=== PATIENT | female | born 1995 | race Hispanic/Latino ===

== ENCOUNTER 2017-06-03 09:05 | Emergency (ER) | payer MEDICAID ==
[2017-06-03 09:07] VITALS: BMI 31.9
[2017-06-03 09:27] VITALS: TEMP 98.2
--- NOTE | 2017-06-03 09:34 | ED PDOC ---
Arrival/HPI - General Chief Complaint: Palpitations Time Seen by Provider: 06/03/17 09:23 Historian: Patient - History of Present Illness Narrative History of Present Illness (Text): 06/03/17 09:20 A 22 year old female, whose past medical history includes depression and psych, presents to the emergency department for chest pain, which the patient reports has been chronic for the last 10 years, but has worsened this morning. The patient describes the pain beginning on the left side of her chest and radiates to her back left shoulder blade with associated palpitations. She denies any nausea, abdominal pain, dysuria, or any other complaints at this time. The patient admits that her pain is similar to the pain she has had in the past. PMD: Jamel Chowdhury Time/Duration: Other (10 years ) Symptom Onset: Gradual Symptom Course: Unchanged, Worsening Quality: Pressure Activities at Onset: Light Context: Home Past Medical History - Provider Review Nursing Documentation Reviewed: Yes - Infectious Disease Hx of Infectious Diseases: None - Tetanus Immunization Tetanus Immunization: Unknown - Past Medical History Past Medical History: No Previous - Cardiac Hx Cardiac Disorders: Yes Other/Comment: Pt states PMD Dx her with Sinus Tach - Pulmonary Hx Respiratory Disorders: Yes Hx Asthma: Yes (ALLERGY INDUCED) - Neurological Hx Neurological Disorder: No - HEENT Hx HEENT Disorder: Yes (CHRONIC TONSILITIS) Other/Comment: tonsils removed 2weeks ago - Renal Hx Renal Disorder: No - Endocrine/Metabolic Hx Endocrine Disorders: No - Hematological/Oncological Hx Blood Disorders: No - Integumentary Hx Dermatological Disorder: No - Musculoskeletal/Rheumatological Hx Musculoskeletal Disorders: No - Gastrointestinal Hx Gastrointestinal Disorders: No - Genitourinary/Gynecological Hx Genitourinary Disorders: No Hx Sexually Transmitted Diseases: No - Psychiatric Hx Psychophysiologic Disorder: Yes Hx Anxiety: Yes Hx Depression: Yes Hx Schizophrenia: Yes Hx Substance Use: No - Surgical History Hx Tonsillectomy: Yes - Anesthesia Hx Anesthesia Reactions: No Hx Malignant Hyperthermia: No - Suicidal Assessment Feels Threatened In Home Enviroment: No Family/Social History - Physician Review Nursing Documentation Reviewed: Yes Family/Social History: No Known Family HX Smoking Status: Never Smoked Hx Alcohol Use: No Hx Substance Use: No Hx Substance Use Treatment: No Allergies/Home Meds Allergies/Adverse Reactions: Allergies No Known Allergies Allergy (Verified 06/03/17 09:15) seasonal allergy Home Medications: Home Meds Medication Instructions Recorded Confirmed Alprazolam [Xanax] 1 mg PO DAILY PRN 03/20/15 06/03/17 Asenapine [Saphris] 10 mg PO DAILY 06/05/16 06/03/17 Sertraline [Zoloft] 100 mg PO DAILY 06/05/16 06/03/17 Review of Systems - Physician Review All systems were reviewed & negative as marked: Yes - Review of Systems Cardiovascular: Chest Pain, Palpitations Gastrointestinal: absent: Abdominal Pain, Nausea Genitourinary Female: absent: Dysuria Physical Exam Vital Signs Reviewed: Yes Vital Signs Temp Pulse Resp BP Pulse Ox 06/03/17 12:56 95 H 17 116/68 98 06/03/17 11:07 96 H 17 125/79 95 06/03/17 09:12 98.2 F 130 H 18 116/77 96 06/03/17 09:07 100 H 17 121/55 L 95 Temperature: Afebrile Blood Pressure: Normal Pulse: Tachycardic Respiratory Rate: Normal Appearance: Positive for: Well-Appearing, Non-Toxic, Comfortable Pain Distress: None Mental Status: Positive for: Alert and Oriented X 3 - Systems Exam Head: Present: Atraumatic, Normocephalic Pupils: Present: PERRL Extroacular Muscles: Present: EOMI Conjunctiva: Present: Normal Mouth: Present: Moist Mucous Membranes Neck: Present: Normal Range of Motion Respiratory/Chest: Present: Clear to Auscultation, Good Air Exchange, Tender to Palpation (mild chest tenderness). No: Respiratory Distress, Accessory Muscle Use Cardiovascular: Present: Regular Rate and Rhythm, Normal S1, S2. No: Murmurs Abdomen: Present: Normal Bowel Sounds. No: Tenderness, Distention, Peritoneal Signs Back: Present: Normal Inspection Upper Extremity: Present: Normal Inspection. No: Cyanosis, Edema Lower Extremity: Present: Normal Inspection. No: Edema Neurological: Present: GCS=15, CN II-XII Intact, Speech Normal Skin: Present: Warm, Dry, Normal Color. No: Rashes Psychiatric: Present: Alert, Oriented x 3, Normal Insight, Normal Concentration Medical Decision Making ED Course and Treatment: 06/03/17 09:36 Impression: A 22 year old female with chest pain. Differential Diagnosis included but are not limited to: Anxiety vs. Musculoskeletal vs. less likely Pulmonary Embolism Plan: -- EKG -- Chest X-ray -- Motrin, ativan -- Reassess and disposition Progress Notes: 06/03/17 10:21 The patient's labs were reviewed and her D-dimer levels are elevated. I will be ordering labs and CT scan. 06/03/17 13:00 Chest X-ray Gate Clerk : Jeff Fuentes MD Report Date : 06/03/2017 11:37:47 HISTORY:chest pain COMPARISON:10/02/2016 FINDINGS: LUNGS:No active pulmonary disease. PLEURA:No significant pleural effusion identified. No pneumothorax apparent. CARDIOVASCULAR:Normal. OSSEOUS STRUCTURES:No significant abnormalities. VISUALIZED UPPER ABDOMEN:Normal. OTHER FINDINGS:None. IMPRESSION:No active disease. 06/03/17 13:41 Accession No. : [id number] Patient Name / ID : PANDA COSTELLO / [id number] Exam Date : 06/03/2017 12:08:04 ( Approved ) Study Comment : Sex / Age : F / 22Y Creator : Ashley Harrison MD Report Date : 06/03/2017 13:34:44 My Comment : PROCEDURE: CT Chest with contrast (Pulmonary Angiogram) IMPRESSION: No CTA evidence for acute pulmonary embolism. Clear lungs. 1:41pm - Pateint no longer has symptoms. CT Chest negative for PE. CXR nl. Patient has an appointment already for a stress test and can follow up with her PMD and [employer] Com[employer]eder. - Lab Interpretations Lab Results: 06/03/17 09:18 06/03/17 09:18 Lab Results 06/03/17 09:28: D-Dimer, Quantitative 1285 H 06/03/17 09:18: Sodium 142, Potassium 3.4 L, Chloride 103, Carbon Dioxide 26, Anion Gap 16, BUN 15, Creatinine 0.6 L, Est GFR ( Amer) > 60, Est GFR ( Non-Af Amer) > 60, Random Glucose 113 H, Calcium 9.4 06/03/17 09:18: PT 12.1, INR 1.10 H, APTT 31.0 06/03/17 09:18: WBC 8.0, RBC 4.60, Hgb 12.2, Hct 39.0, MCV 84.8, MCH 26.5, MCHC 31.3, RDW 13.8, Plt Count 363, MPV 10.0, Gran % 65.8, Lymph % (Auto) 24.6, [place] % (Auto) 7.3 H, Eos % (Auto) 1.5, Baso % (Auto) 0.8, Gran # 5.25, Lymph # 2.0, [place] # 0.6, Eos # 0.1, Baso # 0.06 I have reviewed the lab results: Yes - RAD Interpretation Radiology Orders: 06/03/17 09:24 CXR [CHEST TWO VIEWS (PA/LAT)] [RAD] Stat 06/03/17 10:21 ANGIO CHEST PE PROTOCOL [CT] Stat - Medication Orders Current Medication Orders: Discontinued Medications Ibuprofen (Motrin Tab) 600 mg PO STAT STA Stop: 06/03/17 09:24 Last Admin: 06/03/17 09:37 Dose: 600 mg Lorazepam (Ativan) 1 mg PO ONCE ONE PRN Reason: Protocol Stop: 06/03/17 09:24 Last Admin: 06/03/17 09:37 Dose: 1 mg Potassium Chloride (K-Dur 20 Meq Er Tab) 40 meq PO STAT STA Stop: 06/03/17 10:57 Last Admin: 06/03/17 11:37 Dose: 40 meq - Scribe Statement The provider has reviewed the documentation as recorded by the Nikos Hernandez Provider Scribe Attestation: All medical record entries made by the Scribjúnior were at my direction and personally dictated by me. I have reviewed the chart and agree that the record accurately reflects my personal performance of the history, physical exam, medical decision making, and the department course for this patient. I have also personally directed, reviewed, and agree with the discharge instructions and disposition. Disposition/Present on Arrival - Present on Arrival Any Indicators Present on Arrival: No History of DVT/PE: No History of Uncontrolled Diabetes: No Urinary Catheter: No History of Decub. Ulcer: No History Surgical Site Infection Following: None - Disposition Have Diagnosis and Disposition been Completed?: Yes Diagnosis: Chest pain Disposition: HOME/ ROUTINE Disposition Time: 13:42 Patient Plan: Discharge Patient Problems: Current Active Problems Problem Status Onset Chest pain Acute Condition: IMPROVED Discharge Instructions (ExitCare): Chest Pain (ED) Additional Instructions: Ms May, thank you for letting us take care of you today. Your provider was Dr. Painter. You were treated for Chest Pain. The emergency medical care you received today was directed at your acute symptoms. If you were prescribed any medication, please fill it and take as directed. It may take several days for your symptoms to resolve. Return to the Emergency Department if your symptoms worsen, do not improve, or if you have any other problems. Please contact your doctor or call one of the physicians/clinics you have been referred to that are listed on the Patient Visit Information form that is included in your discharge packet. Bring any paperwork you were given at discharge with you along with any medications you are taking to your follow up visit. Our treatment cannot replace ongoing medical care by a primary care provider (PCP) outside of the emergency department. Thank you for allowing the [facility] team to be part of your care today. If you had an X-Ray or CT scan: A Radiologist will review the ED reading if any change in treatment is needed we will contact you. If you had a blood, urine, or wound culture: It will take several days for the results, if any change in treatment is needed we will contact you. If you had an STI test: It will take 48 hours for the results. Please call after 1 week if you have not heard back. Referrals: Genna Chowdhury MD [Primary Care Provider] - Follow up with primary Forms: [employer] ([place]se), WORK NOTE
[2017-06-03 10:37] LABS: BASO # 0.06 K/mm3 (0.0-2.0); BASO % 0.8 % (0.0-3.0); EOS # 0.1 (0.0-0.7); EOS % 1.5 % (1.5-5.0); GRAN # 5.25 (1.4-6.5); GRAN % 65.8 % (50.0-68.0); LYMPH % 24.6 % (22.0-35.0); MEAN CELL VOLUME 84.8 fl (80.0-105.0); MEAN CORPUSCULAR HEMOGLOBIN 26.5 pg (25.0-35.0); MEAN CORPUSCULAR HGB CONC 31.3 g/dl (31.0-37.0); MONO # 0.6 (0.1-0.6); MONO % 7.3 % (1.0-6.0); RED CELL DISTRIBUTION WIDTH 13.8 % (11.5-14.5)
[2017-06-03 10:44] LABS: BLOOD UREA NITROGEN 15 mg/dL (7-21); CALCIUM 9.4 mg/dL (8.4-10.5); CARBON DIOXIDE 26 mmol/L (21-33); CHLORIDE 103 mmol/L (98-107); GFR AFRICAN-AMERICAN > 60; GLUCOSE,RANDOM 113 mg/dL (70-110); POTASSIUM 3.4 mmol/L (3.6-5.0); SODIUM 142 mmol/L (132-148)
[2017-06-03 10:50] LABS: INR 1.1 (0.93-1.08)
[2017-06-03] MEDS ORDERED: Potassium Chloride 20 mEq ER Tab PO STA (10:56)
[2017-06-03] MEDS ORDERED: Iohexol 350 MG/100 ML VIAL ONE (10:59)
[2017-06-03 11:35] VITALS: RESP 17
--- NOTE | 2017-06-03 11:49 | RAD ---
HISTORY: chest pain COMPARISON: 10/02/2016 TECHNIQUE: Chest PA and lateral FINDINGS: LUNGS: No active pulmonary disease. PLEURA: No significant pleural effusion identified. No pneumothorax apparent. CARDIOVASCULAR: Normal. OSSEOUS STRUCTURES: No significant abnormalities. VISUALIZED UPPER ABDOMEN: Normal. OTHER FINDINGS: None. IMPRESSION: No active disease.
[2017-06-03 12:56] VITALS: O2SAT 98
--- NOTE | 2017-06-03 13:36 | CT ---
PROCEDURE: CT Chest with contrast (Pulmonary Angiogram) HISTORY: chest pain and sob r/o PE COMPARISON: Plain radiographs performed earlier the same day. TECHNIQUE: Axial computed tomography images were obtained of the chest in the pulmonary arterial phase of enhancement. Coronal and sagittal reformatted images were created and reviewed. Intravenous contrast dose: 100 mL Omnipaque 350 Radiation dose: Total exam DLP = 150.09 mGy-cm. This CT exam was performed using one or more of the following dose reduction techniques: Automated exposure control, adjustment of the mA and/or kV according to patient size, and/or use of iterative reconstruction technique. FINDINGS: PULMONARY ARTERIES: There are no filling defects in the pulmonary arteries to suggest acute pulmonary embolism. AORTA: No aortic dissection. No thoracic aortic aneurysm. LUNGS: The lungs are well inflated and clear. No nodule, mass or pulmonary consolidation. PLEURAL SPACES: No effusion or pneuomothorax. HEART: The heart is normal in size. No significant pericardial effusion. LYMPH NODES: No pathologic mediastinal or hilar lymphadenopathy. BONES, CHEST WALL: Within normal limits for the patient's age. No fracture or destructive lesion OTHER FINDINGS: Unremarkable. IMPRESSION: No CTA evidence for acute pulmonary embolism. Clear lungs.
[2017-06-03 13:47] VITALS: BP 118/70; PULSE 93
--- NOTE | 2017-06-03 20:20 | CARD ---
APPROVED REPORT EKG Measurement Heart [id number] 122P70 [id number] <Conclusion> Sinus tachycardia Rightward axis Borderline ECG
== END 2017-06-03 13:47 | disposition home or self-care (01) ==
LOC: ED 09:05
DX: R07.9 Chest pain, unspecified (principal)
CPT/HCPCS: 71020; 71275; 80048; 85025; 85378; 85610; 85730; 93005; 99285; Q9967

== ENCOUNTER 2017-07-26 19:59 | Emergency (ER) | payer MEDICAID ==
[2017-07-26 20:08] VITALS: BMI 18.4
[2017-07-26 20:18] VITALS: RESP 18; TEMP 98.6
--- NOTE | 2017-07-26 20:21 | ED PDOC ---
Arrival/HPI - General Chief Complaint: High Blood Pressure Time Seen by Provider: 07/26/17 19:59 Historian: Patient - History of Present Illness Narrative History of Present Illness (Text): 07/26/17 20:15 Brinda May is a 22 year old female, whose past medical history includes hypertension and tachycardia, who presents to the emergency department complaining of hypertension with a blood pressure level around 150 a few hours prior to arriving. Patient denies any fever, chills, chest pain, shortness of breath, nausea, vomiting, diarrhea, urinary symptoms, back pain, neck pain, headache or any other complaints. pt reports neg stress test recently. upon arrival b/p 120/82. asymptomatic, asking for wifi password in nad. pt reports mild "feeling off". pt later reports that she did not check b/p but "felt it was high" 07/26/17 22:05 Time/Duration: 1-3 hours Symptom Course: Resolved Activities at Onset: Light Context: Home Past Medical History - Provider Review Nursing Documentation Reviewed: Yes - Infectious Disease Hx of Infectious Diseases: None - Tetanus Immunization Tetanus Immunization: Unknown - Past Medical History Past Medical History: No Previous - Cardiac Hx Hypertension: Yes - Pulmonary Hx Respiratory Disorders: Yes Hx Asthma: Yes (ALLERGY INDUCED) - Neurological Hx Neurological Disorder: No - HEENT Hx HEENT Disorder: Yes (CHRONIC TONSILITIS) Other/Comment: tonsils removed 2weeks ago - Renal Hx Renal Disorder: No - Endocrine/Metabolic Hx Endocrine Disorders: No - Hematological/Oncological Hx Blood Disorders: No - Integumentary Hx Dermatological Disorder: No - Musculoskeletal/Rheumatological Hx Musculoskeletal Disorders: No - Gastrointestinal Hx Gastrointestinal Disorders: No - Genitourinary/Gynecological Hx Genitourinary Disorders: No Hx Sexually Transmitted Diseases: No - Psychiatric Hx Psychophysiologic Disorder: Yes Hx Anxiety: Yes Hx Depression: Yes Hx Schizophrenia: Yes Hx Substance Use: No - Surgical History Hx Tonsillectomy: Yes Other/Comment: Oral sx. Endoscopy. Gonzalo foot surgery - Anesthesia Hx Anesthesia: Yes Hx Anesthesia Reactions: No Hx Malignant Hyperthermia: No - Suicidal Assessment Feels Threatened In Home Enviroment: No Family/Social History - Physician Review Nursing Documentation Reviewed: Yes Family/Social History: No Known Family HX Smoking Status: Never Smoked Hx Alcohol Use: No Hx Substance Use: No Hx Substance Use Treatment: No Allergies/Home Meds Allergies/Adverse Reactions: Allergies No Known Allergies Allergy (Verified 06/03/17 09:15) seasonal allergy Home Medications: Home Meds Medication Instructions Recorded Confirmed Alprazolam [Xanax] 1 mg PO DAILY PRN 03/20/15 07/26/17 Asenapine [Saphris] 10 mg PO DAILY 06/05/16 07/26/17 Sertraline [Zoloft] 100 mg PO DAILY 06/05/16 07/26/17 Review of Systems - Physician Review All systems were reviewed & negative as marked: Yes - Review of Systems Constitutional: absent: Fevers, Night Sweats Eyes: absent: Vision Changes ENT: absent: Hearing Changes Respiratory: absent: SOB, Cough Cardiovascular: absent: Chest Pain Gastrointestinal: absent: Abdominal Pain Genitourinary Female: absent: Dysuria, Frequency Musculoskeletal: absent: Arthralgias, Back Pain Skin: absent: Rash, Pruritis Neurological: absent: Headache, Dizziness Endocrine: absent: Diaphoresis, Polyuria Hemo/Lymphatic: absent: Adenopathy, Easy Bleeding Psychiatric: absent: Anxiety, Depression Physical Exam Vital Signs Reviewed: Yes Vital Signs Temp Pulse Resp BP Pulse Ox 07/26/17 21:29 89 18 121/80 100 07/26/17 20:11 98.6 F 102 H 18 120/83 98 Temperature: Afebrile Blood Pressure: Normal Pulse: Tachycardic Respiratory Rate: Normal Appearance: Positive for: Well-Appearing, Non-Toxic, Comfortable Pain Distress: None Mental Status: Positive for: Alert and Oriented X 3 - Systems Exam Head: Present: Atraumatic, Normocephalic Pupils: Present: PERRL Extroacular Muscles: Present: EOMI Conjunctiva: Present: Normal Mouth: Present: Moist Mucous Membranes Neck: Present: Normal Range of Motion Respiratory/Chest: Present: Clear to Auscultation, Good Air Exchange. No: Respiratory Distress, Accessory Muscle Use Cardiovascular: Present: Regular Rate and Rhythm, Normal S1, S2. No: Murmurs Abdomen: Present: Normal Bowel Sounds. No: Tenderness, Distention, Peritoneal Signs Back: Present: Normal Inspection Upper Extremity: Present: Normal Inspection. No: Cyanosis, Edema Lower Extremity: Present: Normal Inspection. No: Edema Neurological: Present: GCS=15, CN II-XII Intact, Speech Normal Skin: Present: Warm, Dry, Normal Color. No: Rashes Psychiatric: Present: Alert, Oriented x 3, Normal Insight, Normal Concentration Medical Decision Making ED Course and Treatment: 07/26/17 20:22 Impression: 22 year old female complaining of hypertension a few hours prior to arrival Differential Diagnosis included but are not limited to: dizziness- r/o metabolic , anemia. Plan: -- Urinalysis -- Labs -- Reassess and disposition Prior Visits: Notes and results from previous visits were reviewed. Patient was last seen in the emergency department on 06/04/17 for chest pain radiating to her left shoulder blade with associated nausea, weakness, and headache. Patient discharged home. Progress Notes: 07/26/17 20:27 ekg nsr 91 incomplete rbbb 07/26/17 21:19 pt reassessed labs unremarkable. ekg unremarkable. b/p normalzied. advise outpt fu and return precautions - Lab Interpretations Lab Results: 07/26/17 20:55 07/26/17 20:55 Lab Results 07/26/17 20:55: Urine Color Yellow, Urine Appearance Sl cloudy, Urine pH 7.5, Ur Specific [place] 1.020, Urine Protein Trace H, Urine Glucose (UA) Negative, Urine Ketones 15 H, Urine Blood Moderate H, Urine Nitrate Negative, Urine Bilirubin Negative, Urine Urobilinogen 0.2, Ur Leukocyte Esterase Negative, Urine RBC 5 - 10, Urine WBC 2 - 5, Ur Epithelial Cells 3 - 4, Urine Bacteria Mod , Urine HCG, Qual Negative 07/26/17 20:55: Sodium 141, Potassium 3.7, Chloride 103, Carbon Dioxide 28, Anion Gap 14, BUN 11, Creatinine 0.8, Est GFR ( Amer) > 60, Est GFR (Non- Af Amer) > 60, Random Glucose 98, Calcium 9.5, Total Bilirubin 0.4, AST 44 H D, ALT 41, Alkaline Phosphatase 48, Total Protein 8.2, Albumin 4.6, Globulin 3.6, Albumin/Globulin Ratio 1.3 07/26/17 20:55: WBC 8.1, RBC 4.33, Hgb 11.3 L, Hct 36.8, MCV 85.0, MCH 26.1, MCHC 30.7 L, RDW 14.0, Plt Count 361, MPV 9.7, Gran % 47.9 L, Lymph % (Auto) 41.7 H, [place] % (Auto) 6.5 H, Eos % (Auto) 2.7, Baso % (Auto) 1.2, Gran # 3.86, Lymph # 3.4, [place] # 0.5, Eos # 0.2, Baso # 0.10 07/26/17 20:46: POC Glucose (mg/dL) 106 - Scribe Statement The provider has reviewed the documentation as recorded by the Scribjúnior Phillip Provider Scribe Attestation: All medical record entries made by the Scribe were at my direction and personally dictated by me. I have reviewed the chart and agree that the record accurately reflects my personal performance of the history, physical exam, medical decision making, and the department course for this patient. I have also personally directed, reviewed, and agree with the discharge instructions and disposition. Disposition/Present on Arrival - Present on Arrival Any Indicators Present on Arrival: No History of DVT/PE: No History of Uncontrolled Diabetes: No Urinary Catheter: No History of Decub. Ulcer: No History Surgical Site Infection Following: None - Disposition Have Diagnosis and Disposition been Completed?: Yes Diagnosis: Dizziness Disposition: HOME/ ROUTINE Disposition Time: 21:20 Condition: STABLE Discharge Instructions (ExitCare): Dizziness (ED) Additional Instructions: return to er with worsening symptoms or concenrs. please follow up in clinic. Referrals: [facility] [Outside] - Follow up with primary [facility] [Outside] - Follow up with primary Forms: [email or web address] (Cuban)
[2017-07-26 21:07] LABS: BASO # 0.1 K/mm3 (0.0-2.0); BASO % 1.2 % (0.0-3.0); EOS # 0.2 (0.0-0.7); EOS % 2.7 % (1.5-5.0); GRAN # 3.86 (1.4-6.5); GRAN % 47.9 % (50.0-68.0); HEMATOCRIT 36.8 % (36.0-48.0); LYMPH # 3.4 (1.2-3.4); LYMPH % 41.7 % (22.0-35.0); MEAN CORPUSCULAR HEMOGLOBIN 26.1 pg (25.0-35.0); MEAN CORPUSCULAR HGB CONC 30.7 g/dl (31.0-37.0); MEAN PLATELET VOLUME 9.7 fl (7.0-11.0); MONO # 0.5 (0.1-0.6); MONO % 6.5 % (1.0-6.0); PH,URINE 7.5 (4.7-8.0); URINE BILIRUBIN NEGATIVE (NEGATIVE); URINE BLOOD MODERATE (NEGATIVE); URINE GLUCOSE (UA) NEGATIVE (NEGATIVE); URINE KETONE 15 mg/dL (NEGATIVE); URINE LEUKOCYTE ESTERASE NEGATIVE Leu/uL (NEGATIVE); URINE PROTEIN TRACE mg/dL (<30 mg/dL); URINE UROBILINOGEN 0.2 E.U./dL (<1 E.U./dL); WHITE BLOOD COUNT 8.1 10^3/ul (4.5-11.0)
[2017-07-26 21:09] LABS: URINE APPEARANCE SL CLOUDY (CLEAR); URINE COLOR YELLOW (YELLOW)
[2017-07-26 21:17] LABS: ALB/GLOB RATIO 1.3 (1.1-1.8); ALKALINE PHOSPHATASE 48 U/L (38-126); ALT/SGPT 41 U/L (7-56); AST/SGOT 44 U/L (14-36); BILIRUBIN,TOTAL 0.4 mg/dL (0.2-1.3); BLOOD UREA NITROGEN 11 mg/dL (7-21); CALCIUM 9.5 mg/dL (8.4-10.5); CARBON DIOXIDE 28 mmol/L (21-33); CHLORIDE 103 mmol/L (98-107); GFR AFRICAN-AMERICAN > 60; GLUCOSE,RANDOM 98 mg/dL (70-110); POTASSIUM 3.7 mmol/L (3.6-5.0); SODIUM 141 mmol/L (132-148); TOTAL PROTEIN 8.2 g/dL (5.8-8.3); URINE BACTERIA MOD (NEG)
[2017-07-26 21:30] VITALS: BP 121/80; PULSE 89; O2SAT 100
--- NOTE | 2017-07-27 17:27 | CARD ---
APPROVED REPORT EKG Measurement Heart [id number] [place] [id number] <Conclusion> Normal sinus rhythm Possible Left atrial enlargement Incomplete right bundle branch block Borderline ECG
== END 2017-07-26 21:30 | disposition home or self-care (01) ==
LOC: ED 19:59
DX: R42 Dizziness and giddiness (principal); I10 Essential (primary) hypertension

== ENCOUNTER 2017-08-10 14:36 | Inpatient (IN) | payer MEDICAID ==
[2017-08-10 14:36] VITALS: BMI 18.4
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
[2017-08-10] MEDS ORDERED: TDAP Vaccine 0.5 mL Syr IM ONE (15:26)
[2017-08-10] MEDS ORDERED: Naproxen 550 mg Tab PO STA (16:30)
--- NOTE | 2017-08-10 16:39 | CT ---
PROCEDURE: CT HEAD WITHOUT CONTRAST. HISTORY: c/o YOO COMPARISON: 06/27/2015 TECHNIQUE: Axial computed tomography images were obtained through the head/brain without intravenous contrast. Radiation dose: Total exam DLP = 903 mGy-cm. This CT exam was performed using one or more of the following dose reduction techniques: Automated exposure control, adjustment of the mA and/or kV according to patient size, and/or use of iterative reconstruction technique. FINDINGS: HEMORRHAGE: No intracranial hemorrhage. BRAIN: No mass effect or edema. No atrophy or chronic microvascular ischemic changes. VENTRICLES: Unremarkable. No hydrocephalus. CALVARIUM: Unremarkable. PARANASAL SINUSES: Unremarkable as visualized. No significant inflammatory changes. MASTOID AIR CELLS: Unremarkable as visualized. No inflammatory changes. OTHER FINDINGS: None. IMPRESSION: No acute findings
[2017-08-10] MEDS ORDERED: Sodium Chloride 0.9% 1,000 ML IV STA (16:46)
--- NOTE | 2017-08-10 17:07 | RAD ---
PROCEDURE: CHEST RADIOGRAPH, 1 VIEW HISTORY: tachycardia COMPARISON: 06/04/2017. FINDINGS: LUNGS: The lungs are well inflated and clear. PLEURA: No pneumothorax or pleural fluid seen. CARDIOVASCULAR: Normal. OSSEOUS STRUCTURES: No significant abnormalities. VISUALIZED UPPER ABDOMEN: Normal. OTHER FINDINGS: None. IMPRESSION: No active pulmonary disease.
[2017-08-10 18:00] LABS: BARBITURATES, UR NEGATIVE (NEGATIVE); BENZODIAZEPINES, UR NEGATIVE (NEGATIVE); OPIATES, UR NEGATIVE (NEGATIVE); PHENCYCLIDINE, UR NEGATIVE (NEGATIVE)
[2017-08-10 18:38] LABS: BASO # 0.05 K/mm3 (0.0-2.0); BASO % 0.4 % (0.0-3.0); EOS # 0.1 (0.0-0.7); EOS % 0.5 % (1.5-5.0); GRAN # 9.01 (1.4-6.5); HEMOGLOBIN 10.8 g/dL (12.0-16.0); LYMPH # 2.1 (1.2-3.4); LYMPH % 17.3 % (22.0-35.0); MEAN CELL VOLUME 83.8 fl (80.0-105.0); MEAN CORPUSCULAR HEMOGLOBIN 26.1 pg (25.0-35.0); MEAN CORPUSCULAR HGB CONC 31.1 g/dl (31.0-37.0); MEAN PLATELET VOLUME 11.3 fl (7.0-11.0); MONO # 0.7 (0.1-0.6); MONO % 5.8 % (1.0-6.0); RBC 4.14 10^6/uL (3.5-6.1); RED CELL DISTRIBUTION WIDTH 14.2 % (11.5-14.5); WHITE BLOOD COUNT 11.9 10^3/ul (4.5-11.0)
[2017-08-10 19:31] LABS: TROPONIN I 0.03 ng/mL
[2017-08-10 19:33] LABS: ALB/GLOB RATIO 1.2 (1.1-1.8); ALBUMIN 3.9 g/dL (3.0-4.8); ALT/SGPT 51 U/L (7-56); AST/SGOT 37 U/L (14-36); BLOOD UREA NITROGEN 9 mg/dL (7-21); CALCIUM 8.2 mg/dL (8.4-10.5); GFR AFRICAN-AMERICAN > 60; GFR NON-AFRICAN AMERICAN > 60
[2017-08-10 20:12] LABS: URINE BILIRUBIN NEGATIVE (NEGATIVE); URINE BLOOD NEGATIVE (NEGATIVE); URINE GLUCOSE (UA) NEGATIVE (NEGATIVE); URINE LEUKOCYTE ESTERASE NEGATIVE Leu/uL (NEGATIVE); URINE NITRATE NEGATIVE (NEGATIVE); URINE PROTEIN 30 mg/dL (<30 mg/dL); URINE UROBILINOGEN 0.2 E.U./dL (<1 E.U./dL)
[2017-08-10 20:15] LABS: ACETAMINOPHEN < 10.0 ug/ml (10.0-20.0); SALICYLATE < 1 mg/dL (2.0-20.0)
[2017-08-10 20:17] LABS: HCG,QUALITATIVE URINE NEGATIVE (NEGATIVE)
[2017-08-10 20:21] LABS: URINE APPEARANCE CLEAR (CLEAR); URINE COLOR YELLOW (YELLOW)
[2017-08-10 20:36] LABS: URINE BACTERIA MOD (NEG); URINE RBC 0 - 2 /hpf (0-2); URINE WBC 0 - 2 /hpf (0-6)
--- NOTE | 2017-08-10 21:44 | CARD ---
APPROVED REPORT EKG Measurement Heart [id number] <Conclusion> Sinus tachycardia Otherwise normal ECG
[2017-08-10] MEDS ORDERED: Iohexol 350 MG/100 ML VIAL ONE (23:13)
--- NOTE | 2017-08-11 00:58 | CT ---
EXAM: CT Angiography Chest With Intravenous Contrast EXAM DATE/TIME: 08/10/2017 9:12 PM CLINICAL HISTORY: 22 years old, female; Pain; Chest pain; Type not specified; Additional info: Elevated d dimer, tachycardia TECHNIQUE: Axial computed tomographic angiography images of the chest with intravenous contrast using pulmonary embolism protocol. All CT scans at this facility use one or more dose reduction techniques, viz.: automated exposure control; ma/kV adjustment per patient size (including targeted exams where dose is matched to indication; i.e. head); or iterative reconstruction technique. MIP reconstructed images were created and reviewed. Coronal and sagittal reformatted images were created and reviewed. CONTRAST: 100 mL of OMNI 350 administered intravenously. COMPARISON: CT - ANGIO CHEST PE PROTOCOL 2017-06-03 12:08 FINDINGS: Heart, aorta and Pulmonary arteries: Heart size is normal. There is no pericardial effusion.There is no aneurysm or dissection. There is perfusion of the 3 arch vessels.There are no pulmonary emboli. Lungs and pleural spaces: Trachea and main bronchi are patent.There is no pneumothorax. There is minimal apical scarring bilaterally. There is no focal consolidation. There is minimal dependent atelectasis. There are no effusions. Mediastinum: The esophagus is unremarkable. There are no pathologically enlarged mediastinal or hilar nodes. Thyroid: Thyroid is unremarkable Bones/joints: There are no acute osseous abnormalities. Soft tissues: unremarkable Upper abdomen: There are no acute abnormalities in the visualized portion of the abdomen. IMPRESSION: No aneurysm, dissection or pulmonary embolus, no focal pneumonia
[2017-08-11] MEDS ORDERED: Alum-Mag Hydrox-Simethicone Susp (30 mL) PO PRN (02:49)
[2017-08-11] MEDS ORDERED: Magnesium Hydroxide Susp 30 ml UD PO PRN (02:49)
--- NOTE | 2017-08-11 03:58 | PCM.BM ---
<Sixto Herrera - Last Filed: 08/11/17 03:55> Treatment Plan Problems - Problems identified on initial assessmt DELUSIONAL Date Initiated: 08/11/17 Time Initiated: 04:00 Assessment reference: NA Status: Active NON ADHERENCE TO MEDICATIONS Date Initiated: 08/11/17 Time Initiated: 04:00 Assessment reference: NA Status: Active POOR COGNITION Date Initiated: 08/11/17 Time Initiated: 04:00 Assessment reference: NA Status: Active Treatment assets and liabiliti Patient Assests: cooperative, educated, self-reliant, ADL independent, good support system, negotiates basic needs Patient Liabilities: financial problems, relationship conflicts, medical problems, other - Milieu Protocol Maintain good personal hygiene: daily Encourage regular showers, every shift Remind patient to perform daily oral care, every shift Assist patient to perform ADL's Maintain personal safety: every shift Educate patient to report safety concerns to staff, every shift Monitor environment for contraband/sharps Medication safety: Monitor for expected outcome, potential side effects: every shift, Assess barriers to learning: every shift, Assess readiness for medication education: every shift Family Contact Family involvement: Family/SO is involved Family contact: Patient agrees to contact Discharge/Continuing Care - Education Needs Education Needs: Patient Medication, Patient Diagnosis/Disease Process, Patient Coping Skills, Patient Anger Management skills, Patient Community resources, Patient Activities of Daily Living, Patient Health Practices/Safety, Patient Personal Hygiene/Grooming - Discharge Discharge Criteria: Tolerates medication w/o severe side effects, Free of Suicidal thoughts, Free of Homicidal thoughts, Free of paranoid thoughts, Normal sleep pattern, Ability to care for self <Ayaka Funes - Last Filed: 08/11/17 11:01> - Diagnosis (1) Schizoaffective disorder Status: Acute Interventions: Psychoeducation/psychotherapy Psychopharmacology/adjustment of medications as needed/ monitoring possible side effects Evaluate pt on daily basis Compliance with medications and follow up appointments Long acting medication if pt is noncompliant with pill form Suicide and homicide risk assessment and prevention, coping strategies, safety plan Relapse prevention Reduction of symptoms Improve functional status Possible assertive community treatment Cognitive behavioral therapy Family involvement Possible social skill training as outpatient 08/11/17 11:02 <Tawny Herman - Last Filed: 08/11/17 16:22> Family Contact Family contact name: Leticia) [phone]) Father Family contacted how many times per week?: 2 - Outside Agency Dr. Etienne Aftejovanni Care involvment: Not involved
[2017-08-11 08:06] LABS: GLUCOSE,FASTING 84 mg/dL (65-110); HDL CHOLESTEROL 50 mg/dL (29-60)
[2017-08-11 08:17] LABS: LDL CHOLESTEROL 78 mg/dL (0-129)
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
[2017-08-12 20:18] VITALS: O2SAT 100
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
--- NOTE | 2017-08-14 09:49 | PCM.PYCHPN ---
Psychiatric Progress Note - Psychiatric Progress Note Patient seen today, length of contact: 25 min Problems Identified/Issues Discussed: I reviewed assessment and recent notes. I met with patient at bedside. She is superficially cooperative and oriented to month, year and locations. Denies any new concerns at this time and feels that she is improving. She is guarded but doesn't appear hypervigilant or responding to internal stimuli. Affect is a little blunt. She denies hallucinations. Patient is tolerating her medications and doesn't have any new discomfort or pain. There were no major behavioral issues overnight. Diagnostic Results: Schizoaffective Disorder Medication Change: Yes (increase seroquel, D/C Klonopin) Medical Record Reviewed: Yes Mental Status Examination - Cognitive Function Orientation: Person, Place, Situation, Time Attention: Poor Concentration: Poor Association: Loose Fund of Knowledge: Poor - Mood Mood: Neutral - Affect Affect: Broad, Blunted - Speech Speech: Soft - Formal Thought Process Formal Thought Process: Hallucinations (denies currently), Delusions - Suicidal Ideation Suicidal Ideation: No - Homicidal Ideation Homicidal Ideation: No Goal/Treatment Plan - Goal/Treatment Plan Need for Continued Stay: Remain at risks for inpatient hospitalization, Discharge may exacerbated symptoms, Severe functional impairment Progress Toward Problem(s) and Goals/Treatment Plan: * c/w current tx and plan * No new weekend labs thus far * Vitals reviewed and noted below: 08/12/17 08/13/17 20:18 18:26 Temperature 98.7 F 97.5 F L Pulse Rate 87 Respiratory 18 Rate Blood Pressure 110/70 Estimated Date of D/C: 08/17/17
[2017-08-15 07:49] VITALS: RESP 20
--- NOTE | 2017-08-15 09:30 | PCM.PYCHPN ---
Psychiatric Progress Note - Psychiatric Progress Note Patient seen today, length of contact: 25 min Patient Chief Complaint: "better" Problems Identified/Issues Discussed: I reviewed recent notes and met with patient at bedside. She is superficially cooperative and oriented x3. Grooming is a little unkempt since she just woke up. Patient denies any new concerns at this time and feels that she is improving. Slept well last night. She is guarded but doesn't appear hypervigilant or responding to internal stimuli. She denies hallucinations. Patient is tolerating her medications and doesn't have any new discomfort or pain. Staff notes indicate that patient has been visible and cheery on the unit. Grooming is good and patient seems a little elevated. There were no major behavioral issues over the weekend. Diagnostic Results: Schizoaffective Disorder Medication Change: No ( ) Medical Record Reviewed: Yes Mental Status Examination - Cognitive Function Orientation: Person, Place, Situation, Time Attention: Poor Concentration: Poor Association: Loose Fund of Knowledge: Poor - Mood Mood: Neutral ("better") - Affect Affect: Broad, Blunted - Speech Speech: Soft - Formal Thought Process Formal Thought Process: Hallucinations (denied all weekend), Delusions (none elicited today) - Suicidal Ideation Suicidal Ideation: No - Homicidal Ideation Homicidal Ideation: No Goal/Treatment Plan - Goal/Treatment Plan Need for Continued Stay: Remain at risks for inpatient hospitalization, Discharge may exacerbated symptoms, Severe functional impairment Progress Toward Problem(s) and Goals/Treatment Plan: * c/w current tx and plan * No new weekend labs thus far * Vitals reviewed and noted below: 08/12/17 08/12/17 08/12/17 07:20 15:00 20:18 Temperature 98.0 F 98.7 F Pulse Rate 93 H 96 H 87 Respiratory 20 18 Rate Blood Pressure 89/54 L 115/73 110/70 08/13/17 18:26 Temperature 97.5 F L Pulse Rate Respiratory Rate Blood Pressure Estimated Date of D/C: 08/17/17
[2017-08-16] MEDS ORDERED: Home Med 1 UNIT PO SCH (12:15)
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
[2017-08-17 07:04] VITALS: TEMP 98.2
[2017-08-17] MEDS ORDERED: JUNEL PO SCH ×2 (08:00)
[2017-08-17] MEDS: JUNEL PO SCH (08:08)
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
[2017-08-18] MEDS: JUNEL PO SCH (07:39)
[2017-08-18 07:43] VITALS: BP 99/67; PULSE 91
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
== END 2017-08-18 14:04 | disposition home or self-care (01) | DRG 430 ==
LOC: ED 14:36 → ERH 08-11 01:08 → PSYC 08-11 02:16
PROVIDERS: ADMIT Psychiatry & Neurology Psychiatry; ATTEND Psychiatry & Neurology Psychiatry
DX: F25.9 Schizoaffective disorder, unspecified (principal); F32.9 Major depressive disorder, single episode, unspecified; F41.9 Anxiety disorder, unspecified

== ENCOUNTER 2017-09-20 18:34 | Emergency (ER) | payer MEDICAID ==
[2017-09-20 18:34] VITALS: BMI 18.4
--- NOTE | 2017-09-20 19:08 | ED PDOC ---
Arrival/HPI - General Chief Complaint: Psychiatric Evaluation Time Seen by Provider: 09/20/17 19:03 Historian: Patient - History of Present Illness Narrative History of Present Illness (Text): 09/20/17 19:00 pt p/w + worsening depression over the last few days; pt with persistent depression for many years; pt states she has been having intermittent suicidal thoughts but without any plans; pt states there is no escalation of these thoughts; pt denied homicidal ideation, pt denied hallucinations - visual/ tactile/auditory; pt states intermittent anxiety/stress feelings, + palpitations , non-specific chest pressure, no fay/fever/chills/sweats, no sob/palpitations, no abd pain, no n/v, no numbness/tingling, no urinary/bowel changes, no fall/ trauma/sick contact, no traveling operator is here for further eval pt's without other complaints. pt states she has been non-compliant with her psych meds since 1201-0925 Time/Duration: Other (weeks, worsening depression over the last few days) Symptom Onset: Gradual Symptom Course: Unchanged Context: Home Past Medical History - Provider Review Nursing Documentation Reviewed: Yes - Travel History Have you recently traveled outside [place] w/in the past 3 mons?: No - Past History Past History: No Previous - Infectious Disease Hx of Infectious Diseases: None - Tetanus Immunization Tetanus Immunization: Unknown - Past Medical History Past Medical History: No Previous - Cardiac Hx Cardiac Disorders: Yes Hx Cardiac Arrhythmia: Yes Hx Hypertension: Yes - Pulmonary Hx Respiratory Disorders: Yes Hx Asthma: Yes (ALLERGY INDUCED) - Neurological Hx Neurological Disorder: No - HEENT Hx HEENT Disorder: Yes (CHRONIC TONSILITIS) Other/Comment: tonsils removed 2weeks ago - Renal Hx Renal Disorder: No - Endocrine/Metabolic Hx Endocrine Disorders: No - Hematological/Oncological Hx Blood Disorders: No - Integumentary Hx Dermatological Disorder: No - Musculoskeletal/Rheumatological Hx Musculoskeletal Disorders: No - Gastrointestinal Hx Gastrointestinal Disorders: No - Genitourinary/Gynecological Hx Genitourinary Disorders: No Hx Sexually Transmitted Diseases: No Other/Comment: taking control pills 'Junalfe' - Psychiatric Hx Psychophysiologic Disorder: Yes Hx Anxiety: Yes Hx Depression: Yes Hx Schizophrenia: Yes Hx Substance Use: No - Surgical History Hx Tonsillectomy: Yes Other/Comment: Oral sx. Endoscopy. Gonzalo foot surgery - Anesthesia Hx Anesthesia: Yes Hx Anesthesia Reactions: No Hx Malignant Hyperthermia: No - Suicidal Assessment Feels Threatened In Home Enviroment: No Family/Social History - Physician Review Nursing Documentation Reviewed: Yes Family/Social History: No Known Family HX Smoking Status: Never Smoked Hx Alcohol Use: No Hx Substance Use: No Hx Substance Use Treatment: No Allergies/Home Meds Allergies/Adverse Reactions: Allergies No Known Allergies Allergy (Verified 08/11/17 03:02) seasonal allergy Review of Systems - Review of Systems Constitutional: Fatigue Eyes: Normal ENT: Normal Respiratory: Normal Cardiovascular: Chest Pain, Palpitations. absent: Syncope Gastrointestinal: Normal Genitourinary Female: Normal Musculoskeletal: Normal Skin: Normal Neurological: Normal Endocrine: Normal Hemo/Lymphatic: Normal Psychiatric: Anxiety, Depression Physical Exam Vital Signs Reviewed: Yes Vital Signs Temp Pulse Resp BP Pulse Ox 09/20/17 19:10 98.1 F 79 18 98/50 L 99 09/20/17 18:47 97.6 F 62 16 120/84 100 Temperature: Afebrile Blood Pressure: Normal Pulse: Regular Respiratory Rate: Normal Appearance: Positive for: Well-Appearing, Non-Toxic, Comfortable, Other (flat affect, alert/awake, GCS = 15, oriented x 3, NAD, cooperative, follows command with ease) Pain Distress: None Mental Status: Positive for: Alert and Oriented X 3 - Systems Exam Head: Present: Atraumatic, Normocephalic Pupils: Present: PERRL, Other (wearing eyeglasses, no nystagmus, no photophobia , sclera anicteric) Extroacular Muscles: Present: EOMI Conjunctiva: Present: Normal Ears: Present: Normal Mouth: Present: Moist Mucous Membranes, Normal Lips, Other (no drooling/stridor , no exudate/lesions, intact dentitions) Pharnyx: Present: Normal Nose (External): Present: Atraumatic Nose (Internal): Present: Normal Inspection Neck: Present: Normal Range of Motion, Trachea Midline, Other (no step off, no nuchal rigidity, no meningeal signs, intact ROM). No: MIDLINE TENDERNESS Respiratory/Chest: Present: Clear to Auscultation, Good Air Exchange, Other ( CTA b/l, no w/r/r, no accessory ) Cardiovascular: Present: Regular Rate and Rhythm, Normal S1, S2. No: Murmurs Abdomen: Present: Normal Bowel Sounds, Other (well nourished female, no focal tenderness, no huff's sign, no mcburney's point tenderness, no masses/rebound/ guarding/rigidity) Back: Present: Normal Inspection. No: CVA Tenderness, Midline Tenderness Upper Extremity: Present: Normal Inspection, Normal ROM, NORMAL PULSES, Neurovascularly Intact, Capillary Refill < 2s Lower Extremity: Present: Normal Inspection, NORMAL PULSES, Normal ROM, Neurovascularly Intact, Capillary Refill < 2 s Neurological: Present: GCS=15, CN II-XII Intact, Speech Normal Skin: Present: Warm, Normal Color, Other (cap refill < 1sec, no ulcerations, no petechiae) Psychiatric: Present: Alert, Other (flat affect) Medical Decision Making ED Course and Treatment: 09/20/17 19:08 Impression: depression, suicidal thought i have consider all the differential diagnosis regarding pt's chief medical complaints/clinical findings, including but are not limited to: depression, suicidal thought A/P: depression, suicidal thought - labs - ekg - xray - ua - observe - supportive care 09/20/17 20:14 Pt is medically cleared for psych eval PES/crisis counselor evaluated patient, pt likely can be discharged home with outpt psych eval/follow up, awaiting psych to agree 09/20/17 22:04 PES/crisis counselor psych cleared patient, pt can be discharged home with outpt f/u pt is currently NOT suicidal/NO homicidal ideations pt is made aware of her medical results pt is encouraged to take her medications pt will f/u as directed pt will be discharged home Re-evaluation Time: 20:14 Reassessment Condition: Improving,but remains with symptoms - Lab Interpretations Lab Results: 09/20/17 19:35 09/20/17 19:35 Lab Results 09/20/17 19:35: Alcohol, Quantitative < 10 09/20/17 19:35: Salicylates < 1 L, Acetaminophen < 10.0 L 09/20/17 19:35: Sodium 143, Potassium 3.3 L, Chloride 106, Carbon Dioxide 26, Anion Gap 14, BUN 12, Creatinine 0.6 L, Est GFR ( Amer) > 60, Est GFR ( Non-Af Amer) > 60, Random Glucose 98, Calcium 9.1, Total Bilirubin 0.3, AST 36, ALT 31, Alkaline Phosphatase 36 L, Total Protein 6.5, Albumin 3.7, Globulin 2.8 , Albumin/Globulin Ratio 1.3 09/20/17 19:35: WBC 9.2 D, RBC 4.24, Hgb 10.7 L, Hct 35.3 L, MCV 83.3, MCH 25.2 , MCHC 30.3 L, RDW 15.7 H, Plt Count 377, MPV 10.2, Gran % 54.7, Lymph % (Auto) 34.6, [place] % (Auto) 7.8 H, Eos % (Auto) 2.0, Baso % (Auto) 0.9, Gran # 5.04, Lymph # (Auto) 3.2, [place] # (Auto) 0.7 H, Eos # (Auto) 0.2, Baso # (Auto) 0.08 I have reviewed the lab results: Yes Interpretation: All labs normal - RAD Interpretation Narrative RAD Interpretations (Text): 09/20/17 22:05 CXR - NAD Radiology Orders: 09/20/17 19:04 CHEST PORTABLE [RAD] Stat Heel Seat Trimmer: ED Physician - EKG Interpretation EKG Interpretation (Text): 09/20/17 22:06 NSR at 75 bpm, normal axis, no ectopy, inverted t in leads V1-2, no st changes, ABNL EKG; unchanged compare with old EKG 08/2017 Interpreted by ED Physician: Yes Type: 12 lead EKG Comparison: Similar to previous EKG - Medication Orders Current Medication Orders: Discontinued Medications Potassium Chloride (Klor-Con 10) 10 meq PO STAT STA Stop: 09/20/17 20:13 Last Admin: 09/20/17 20:30 Dose: 10 meq Disposition/Present on Arrival - Present on Arrival Any Indicators Present on Arrival: No History of DVT/PE: No History of Uncontrolled Diabetes: No Urinary Catheter: No History of Decub. Ulcer: No History Surgical Site Infection Following: None - Disposition Have Diagnosis and Disposition been Completed?: Yes Diagnosis: Depression, Non compliance w medication regimen Disposition: HOME/ ROUTINE Disposition Time: 22:00 Patient Plan: Discharge Patient Problems: Current Active Problems Problem Status Onset Depression Acute Non compliance w medication regimen Acute Condition: STABLE Discharge Instructions (ExitCare): Depression Print Language: AZERI Additional Instructions: Make sure to see your doctor in 1-2 days DRINK PLENTY OF FLUIDS DONT SMOKE/drink alcohol if you smoke/drink take your medications as prescribed RETURN TO ED IF worse pain, cant breath, persistent vomiting, high fever >101- 102 for hours, altered behavior, unable to urinate, heavy/persistent bleeding, feel like hurting yourself or others or both, passing out, chest pain, or other medical emergencies Referrals: Job Huff MD [Primary Care Provider] - Follow up with primary Forms: [employer] (Faroese)
[2017-09-20 19:11] VITALS: BP 98/50; PULSE 79; RESP 18; TEMP 98.1; O2SAT 99
[2017-09-20 20:12] LABS: ACETAMINOPHEN < 10.0 ug/ml (10.0-20.0); ALB/GLOB RATIO 1.3 (1.1-1.8); ALBUMIN 3.7 g/dL (3.0-4.8); ALT/SGPT 31 U/L (7-56); AST/SGOT 36 U/L (14-36); BLOOD UREA NITROGEN 12 mg/dL (7-21); CALCIUM 9.1 mg/dL (8.4-10.5); GFR AFRICAN-AMERICAN > 60; GFR NON-AFRICAN AMERICAN > 60; SALICYLATE < 1 mg/dL (2.0-20.0)
[2017-09-20] MEDS ORDERED: Potassium Chloride 10 mEq ER Tab PO STA (20:12)
[2017-09-20 20:44] LABS: BASO # 0.08 K/mm3 (0.0-2.0); BASO % 0.9 % (0.0-3.0); EOS # 0.2 (0.0-0.7); GRAN # 5.04 (1.4-6.5); GRAN % 54.7 % (50.0-68.0); HEMOGLOBIN 10.7 g/dL (12.0-16.0); LYMPH # 3.2 (1.2-3.4); LYMPH % 34.6 % (22.0-35.0); MEAN CELL VOLUME 83.3 fl (80.0-105.0); MEAN CORPUSCULAR HEMOGLOBIN 25.2 pg (25.0-35.0); MEAN CORPUSCULAR HGB CONC 30.3 g/dl (31.0-37.0); MEAN PLATELET VOLUME 10.2 fl (7.0-11.0); MONO # 0.7 (0.1-0.6); MONO % 7.8 % (1.0-6.0); RBC 4.24 10^6/uL (3.5-6.1); RED CELL DISTRIBUTION WIDTH 15.7 % (11.5-14.5); WHITE BLOOD COUNT 9.2 10^3/ul (4.5-11.0)
--- NOTE | 2017-09-21 08:11 | RAD ---
HISTORY: medical clearance for psych COMPARISON: Frontal chest radiograph 08/10/2017. FINDINGS: Patient slightly rotated toward the left. LUNGS: No active pulmonary disease. PLEURA: No significant pleural effusion identified, no pneumothorax apparent. CARDIOVASCULAR: Normal. OSSEOUS STRUCTURES: No significant abnormalities. VISUALIZED UPPER ABDOMEN: Normal. OTHER FINDINGS: None. IMPRESSION: No interval acute cardiopulmonary disease appreciated.
--- NOTE | 2017-09-22 02:49 | CARD ---
APPROVED REPORT EKG Measurement Heart [id number] <Conclusion> Sinus rhythm with marked sinus arrhythmia RSR' or QR pattern in V1 suggests right ventricular conduction delay Borderline ECG
== END 2017-09-20 22:05 | disposition home or self-care (01) ==
LOC: ED 18:34
DX: F32.9 Major depressive disorder, single episode, unspecified (principal); Z91.14 Patient's other noncompliance with medication regimen; I10 Essential (primary) hypertension

== ENCOUNTER 2018-06-23 10:46 | Emergency (ER) | payer MEDICAID ==
[2018-06-23 10:46] VITALS: BMI 18.4
[2018-06-23 11:13] VITALS: O2SAT 99
[2018-06-23] MEDS ORDERED: Albuterol-Ipratrop 3 mg / 0.5 (3 ml) UD IH STA (11:25)
--- NOTE | 2018-06-23 11:29 | ED PDOC ---
Arrival/HPI - General Chief Complaint: High Blood Pressure Historian: Patient - History of Present Illness Narrative History of Present Illness (Text): 06/23/18 11:26 23 year old female, whose past medical history includes hypertension and tachycardia, who presents to the emergency department complaining of hypertension. Patient states she ran out of her hypertension medication a year ago. Patient states she doesn't know what medication it was, or who prescribed it to her. Patient states she has felt short of breath and dizzy today, along with cold symptoms. Patient denies any fevers, chills, headache, chest pain, abdominal pain, nausea, vomiting, diarrhea, back pain, neck pain, urinary/bowel changes, or any other complaint. Time/Duration: Prior to Arrival Symptom Course: Unchanged Activities at Onset: Rest Context: Home Past Medical History - Provider Review Nursing Documentation Reviewed: Yes - Travel History Have you recently traveled outside [place] w/in the past 3 mons?: No - Past History Past History: No Previous - Infectious Disease Hx of Infectious Diseases: None - Tetanus Immunization Tetanus Immunization: Unknown - Past Medical History Past Medical History: No Previous - Cardiac Hx Cardiac Disorders: Yes Hx Cardiac Arrhythmia: Yes Hx Hypertension: Yes - Pulmonary Hx Respiratory Disorders: Yes Hx Asthma: Yes - Neurological Hx Neurological Disorder: No - HEENT Hx HEENT Disorder: Yes Other/Comment: TONSILECTOMY - Renal Hx Renal Disorder: No - Endocrine/Metabolic Hx Endocrine Disorders: No - Hematological/Oncological Hx Blood Disorders: No - Integumentary Hx Dermatological Disorder: No - Musculoskeletal/Rheumatological Hx Musculoskeletal Disorders: No - Gastrointestinal Hx Gastrointestinal Disorders: No - Genitourinary/Gynecological Hx Genitourinary Disorders: No Hx Sexually Transmitted Diseases: No - Psychiatric Hx Psychophysiologic Disorder: Yes Hx Anxiety: Yes Hx Depression: Yes Hx Schizophrenia: Yes Hx Substance Use: No - Surgical History Hx Tonsillectomy: Yes Other/Comment: Endoscopy , foot surgery - Anesthesia Hx Anesthesia: Yes Hx Anesthesia Reactions: No Hx Malignant Hyperthermia: No - Suicidal Assessment Feels Threatened In Home Enviroment: No Family/Social History - Physician Review Nursing Documentation Reviewed: Yes Family/Social History: No Known Family HX Smoking Status: Never Smoked Hx Alcohol Use: No Hx Substance Use: No Hx Substance Use Treatment: No Allergies/Home Meds Allergies/Adverse Reactions: Allergies No Known Allergies Allergy (Verified 06/23/18 10:52) seasonal allergy Review of Systems - Physician Review All systems were reviewed & negative as marked: Yes - Review of Systems Constitutional: absent: Fevers, Night Sweats Respiratory: SOB Cardiovascular: absent: Chest Pain Gastrointestinal: absent: Abdominal Pain, Diarrhea, Nausea, Vomiting Musculoskeletal: absent: Back Pain, Neck Pain Neurological: Dizziness. absent: Headache Physical Exam Vital Signs Reviewed: Yes Vital Signs Temp Pulse Resp BP Pulse Ox 06/23/18 11:06 109/67 06/23/18 10:52 98.1 F 109 H 16 96/61 L 99 Temperature: Afebrile Blood Pressure: Hypotensive Pulse: Tachycardic Respiratory Rate: Normal Appearance: Positive for: Well-Appearing, Non-Toxic, Comfortable Pain Distress: None Mental Status: Positive for: Alert and Oriented X 3 - Systems Exam Head: Present: Atraumatic, Normocephalic Pupils: Present: PERRL Extroacular Muscles: Present: EOMI Conjunctiva: Present: Normal Mouth: Present: Moist Mucous Membranes Neck: Present: Normal Range of Motion Respiratory/Chest: Present: Clear to Auscultation, Good Air Exchange. No: Respiratory Distress, Accessory Muscle Use Cardiovascular: Present: Regular Rate and Rhythm, Normal S1, S2, Tachycardic. No: Murmurs Abdomen: No: Tenderness, Distention, Peritoneal Signs Back: Present: Normal Inspection Upper Extremity: Present: Normal Inspection. No: Cyanosis, Edema Lower Extremity: Present: Normal Inspection. No: Edema Neurological: Present: GCS=15, CN II-XII Intact, Speech Normal Skin: Present: Warm, Dry, Normal Color. No: Rashes Psychiatric: Present: Alert, Oriented x 3, Normal Insight, Normal Concentration Medical Decision Making ED Course and Treatment: 06/23/18 11:31 Impression: 23 year old female presents with subjective hypertension Plan: -- EKG -- Chest X-ray --CTPE -- Duonebs -- Prednisone -- Urinalysis -- Reassess and disposition Prior Visits: Notes and results from previous visits were reviewed. Progress Notes: 06/23/18 11:51 UA negative for esterases or WBCs. CXR negative for pulmonary infiltrates or consolidations. Pending D-dimer. 06/23/18 15:15 CTPE negative for acute pulmonary embolus. Patient and her partner informed and encouraged to follow up with a PCP who may trend her blood pressures. She demo nstrates understanding and will follow up in clinc. She is stable for discharge. - RAD Interpretation Narrative RAD Interpretations (Text): 06/23/18 12:11 Chest X-ray reviewed, shows: No active disease Radiology Orders: 06/23/18 11:25 CHEST PORTABLE [RAD] Stat Oracle Database Consultant: Radiologist - EKG Interpretation EKG Interpretation (Text): 06/23/18 17:13 EKG: Ordered, reviewed, and independently interpreted the EKG. Rate : 83 BPM Rhythm : NSR Interpretation : Incomplete RBBB, No QT prolongation. Interpreted by ED Physician: Yes Type: 12 lead EKG - Scribe Statement The provider has reviewed the documentation as recorded by the Scribe Ronnell Soni Provider Scribe Attestation: All medical record entries made by the Scribe were at my direction and personally dictated by me. I have reviewed the chart and agree that the record accurately reflects my personal performance of the history, physical exam, medical decision making, and the department course for this patient. I have also personally directed, reviewed, and agree with the discharge instructions and disposition. Disposition/Present on Arrival - Present on Arrival Any Indicators Present on Arrival: No History of DVT/PE: No History of Uncontrolled Diabetes: No Urinary Catheter: No History of Decub. Ulcer: No History Surgical Site Infection Following: None - Disposition Have Diagnosis and Disposition been Completed?: Yes Diagnosis: Acute rhinosinusitis Disposition: HOME/ ROUTINE Disposition Time: 11:55 Patient Plan: Discharge Condition: STABLE Discharge Instructions (ExitCare): Bacterial Upper Respiratory Infection, Adult (DC) Print Language: CZECH Additional Instructions: All medical record entries made by the Scribe were at my direction and personally dictated by me. I have reviewed the chart and agree that the record accurately reflects my personal performance of the history, physical exam, medical decision making, and the department course for this patient. I have also personally directed, reviewed, and agree with the discharge instructions and disposition. Prescriptions: Methylprednisolone [Medrol Dose Pack (21 tabs)] 4 mg PO DAILY #21 mg Referrals: [facility] at [facility] [Outside] - Follow up with primary Janae Cowan MD [Medical Doctor] - Follow up with primary Forms: [employer] ([place])
[2018-06-23 11:40] LABS: PH,URINE 6.5 (4.7-8.0); URINE BILIRUBIN NEGATIVE (NEGATIVE); URINE BLOOD TRACE-INTACT (NEGATIVE); URINE GLUCOSE (UA) NEGATIVE (NEGATIVE); URINE LEUKOCYTE ESTERASE NEGATIVE Leu/uL (NEGATIVE); URINE PROTEIN NEGATIVE mg/dL (<30 mg/dL); URINE UROBILINOGEN 0.2 E.U./dL (<1 E.U./dL)
[2018-06-23 11:42] LABS: URINE APPEARANCE CLEAR (CLEAR); URINE COLOR YELLOW (YELLOW)
[2018-06-23 11:43] LABS: HCG,QUALITATIVE URINE NEGATIVE (NEGATIVE)
[2018-06-23 11:52] LABS: URINE RBC 0 - 2 /hpf (0-2); URINE WBC 0 - 2 /hpf (0-6)
--- NOTE | 2018-06-23 11:57 | RAD ---
Date of service: 06/23/2018 HISTORY: sob COMPARISON: 09/20/2017 FINDINGS: LUNGS: No active pulmonary disease. PLEURA: No significant pleural effusion identified, no pneumothorax apparent. CARDIOVASCULAR: No aortic atherosclerotic calcification present. Normal cardiac size. No pulmonary vascular congestion. OSSEOUS STRUCTURES: No significant abnormalities. VISUALIZED UPPER ABDOMEN: Normal. OTHER FINDINGS: None. IMPRESSION: No active disease.
[2018-06-23 14:19] LABS: ALB/GLOB RATIO 1.3 (1.1-1.8); ALT/SGPT 26 U/L (7-56); AST/SGOT 23 U/L (14-36); BLOOD UREA NITROGEN 11 mg/dL (7-21); CALCIUM 8.9 mg/dL (8.4-10.5); GFR NON-AFRICAN AMERICAN > 60
[2018-06-23] MEDS ORDERED: Iohexol 350 MG/100 ML VIAL ONE (14:27)
[2018-06-23 15:40] VITALS: BP 109/65; PULSE 75; RESP 18; TEMP 98
--- NOTE | 2018-06-23 15:41 | CT ---
Date of service: 06/23/2018 PROCEDURE: CT Chest with contrast (Pulmonary Angiogram) HISTORY: SOB w/ elevated D-dimer COMPARISON: None available. TECHNIQUE: Axial computed tomography images were obtained of the chest in the pulmonary arterial phase of enhancement. Coronal and sagittal reformatted images were created and reviewed. Intravenous contrast dose: 100 cc of Omni 350 Radiation dose: Total exam DLP = 136.19 mGy-cm. This CT exam was performed using one or more of the following dose reduction techniques: Automated exposure control, adjustment of the mA and/or kV according to patient size, and/or use of iterative reconstruction technique. FINDINGS: PULMONARY ARTERIES: Unremarkable. No pulmonary embolism. AORTA: No acute findings. No thoracic aortic aneurysm. No aortic atherosclerotic calcification or mural plaque present. LUNGS: Unremarkable. No nodule, mass or pulmonary consolidation. PLEURAL SPACES: Unremarkable. No effusion or pneumothorax. HEART: Unremarkable. No cardiomegaly. No significant pericardial effusion. LYMPH NODES: No lymphadenopathy. BONES, CHEST WALL: Unremarkable. No fracture or destructive lesion OTHER FINDINGS: Unremarkable. IMPRESSION: Unremarkable CT pulmonary angiogram. No pulmonary embolus.
--- NOTE | 2018-06-24 08:35 | CARD ---
APPROVED REPORT Date of service: 06/23/2018 EKG Measurement Heart [id number] <Conclusion> Sinus rhythm with marked sinus arrhythmia Incomplete right bundle branch block No change
== END 2018-06-23 15:47 | disposition home or self-care (01) ==
LOC: ED 10:46
DX: J01.90 Acute sinusitis, unspecified (principal); I10 Essential (primary) hypertension; J45.909 Unspecified asthma, uncomplicated; F41.9 Anxiety disorder, unspecified
CPT/HCPCS: 71045; 71275; 80053; 81001; 84703; 85378; 93005; 94640; 99285; Q9967

== ENCOUNTER 2018-07-17 08:07 | Emergency (ER) | payer MEDICAID ==
[2018-07-17 08:08] VITALS: BMI 18.4
[2018-07-17 08:19] VITALS: RESP 18; O2SAT 99
--- NOTE | 2018-07-17 08:40 | ED PDOC ---
Arrival/HPI - General Chief Complaint: Cough, Cold, Congestion Time Seen by Provider: 07/17/18 08:14 Historian: Patient - History of Present Illness Narrative History of Present Illness (Text): 07/17/18 08:37 A 23 year old female, whose past medical history includes hypertension, tachycardia, depression, and anxiety, presents to the emergency department with a complaint of 2 day duration productive cough. She reports that her symptoms worsen at night. She also reports a subjective fever last night. The patient denies chills, headache, dizziness, chest pain, shortness of breath, dyspnea on exertion, sore throat, abdominal pain, nausea, vomiting, diarrhea, back pain, neck pain, urinary/bowel changes, or any other complaint. Time/Duration: Other (2 weeks) Symptom Onset: Gradual Symptom Course: Unchanged Activities at Onset: Rest, Light Context: Home Past Medical History - Provider Review Nursing Documentation Reviewed: Yes - Past History Past History: No Previous - Infectious Disease Hx of Infectious Diseases: None - Tetanus Immunization Tetanus Immunization: Unknown - Past Medical History Past Medical History: No Previous - Cardiac Hx Cardiac Disorders: Yes Hx Cardiac Arrhythmia: Yes Hx Hypertension: Yes - Pulmonary Hx Respiratory Disorders: Yes Hx Asthma: Yes - Neurological Hx Neurological Disorder: No - HEENT Hx HEENT Disorder: Yes Other/Comment: TONSILECTOMY - Renal Hx Renal Disorder: No - Endocrine/Metabolic Hx Endocrine Disorders: No - Hematological/Oncological Hx Blood Disorders: No - Integumentary Hx Dermatological Disorder: No - Musculoskeletal/Rheumatological Hx Musculoskeletal Disorders: No - Gastrointestinal Hx Gastrointestinal Disorders: No - Genitourinary/Gynecological Hx Genitourinary Disorders: No Hx Sexually Transmitted Diseases: No - Psychiatric Hx Psychophysiologic Disorder: Yes Hx Anxiety: Yes Hx Depression: Yes Hx Schizophrenia: Yes Hx Substance Use: No - Surgical History Hx Tonsillectomy: Yes Other/Comment: Endoscopy , foot surgery - Anesthesia Hx Anesthesia: Yes Hx Anesthesia Reactions: No Hx Malignant Hyperthermia: No - Suicidal Assessment Feels Threatened In Home Enviroment: No Family/Social History - Physician Review Nursing Documentation Reviewed: Yes Family/Social History: No Known Family HX Smoking Status: Never Smoked Hx Alcohol Use: No Hx Substance Use: No Hx Substance Use Treatment: No Allergies/Home Meds Allergies/Adverse Reactions: Allergies No Known Allergies Allergy (Verified 07/17/18 08:19) seasonal allergy Review of Systems - Physician Review All systems were reviewed & negative as marked: Yes - Review of Systems Constitutional: Fevers ENT: absent: Sore Throat Respiratory: Cough. absent: SOB Cardiovascular: absent: Chest Pain, PEREZ Gastrointestinal: absent: Abdominal Pain, Stool Changes, Diarrhea, Nausea, Vomiting Genitourinary Female: absent: Urine Output Changes Musculoskeletal: absent: Back Pain, Neck Pain Neurological: absent: Headache, Dizziness Physical Exam - Physical Exam Narrative Physical Exam (Text): 07/17/18 08:41 Gen: VS reviewed, alert, well developed, well nourished, nontoxic, mild distress. ENT: normal pharynx. Post- nasal drip. Eye: EOMI, PERRL. Neck: no JVD, supple, no adenopathy. CV: regular rate, regular rhythm, no rubs, no murmur, no gallops, S1, S2, pulses equal and strong. Pulm: no distress, clear to auscultation, no wheeze, no rhonchi, breath sounds equal, no rales. Abd: soft, nontender, no guarding, no rebound, no rigidity, normal bowel sounds. Ext: no edema. Skin: good color, no rash, no cyanosis. Psych: responds appropriately to questions, normal affect. Neuro: oriented x 3, CN2-12 intact grossly, motor intact, sensation intact.. Vital Signs Reviewed: Yes Vital Signs Temp Pulse Resp BP Pulse Ox 07/17/18 08:18 97.7 F 94 H 18 110/69 99 Temperature: Afebrile Blood Pressure: Normal Pulse: Tachycardic Respiratory Rate: Normal Appearance: Positive for: Well-Appearing, Non-Toxic, Comfortable Pain Distress: None Mental Status: Positive for: Alert and Oriented X 3 Medical Decision Making ED Course and Treatment: 07/17/18 08:41 Impression: A 23 year old female presents to the emergency department with a complaint of 2 week duration cough. Plan: -- Chest X-ray -- Reassess and disposition Prior Visits: Notes and results from previous visits were reviewed. Progress Notes: 07/17/18 09:46 patient seen for dry cough and postnasal drip, cxr negative for focal infiltrate , supportive care, tx postnasal drip. stable for dc. - RAD Interpretation Narrative RAD Interpretations (Text): 07/17/18 09:47 cxr my read: no focal infiltrate, no ptx, no cardiomegaly CHEST TWO VIEWS (PA/ LAT) Date Signed: 07/17/18 0944 Signed By: Luma Mccormick MD IMPRESSION: Mild subsegmental atelectasis lft lung base. 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 I have reviewed the chart and agree that the record accurately reflects my personal performance of the history, physical exam, medical decision making, and the department course for this patient. I have also personally directed, reviewed, and agree with the discharge instructions and disposition. Disposition/Present on Arrival - Present on Arrival Any Indicators Present on Arrival: No History of DVT/PE: No History of Uncontrolled Diabetes: No Urinary Catheter: No History of Decub. Ulcer: No History Surgical Site Infection Following: None - Disposition Have Diagnosis and Disposition been Completed?: Yes Diagnosis: Upper respiratory infection, viral Disposition: HOME/ ROUTINE Disposition Time: 09:48 Patient Plan: Discharge Condition: STABLE Discharge Instructions (ExitCare): Viral Upper Respiratory Infection, Adult (DC) Prescriptions: Pseudoephedrine [Sudafed Oral Syrup] 30 mg PO QID 5 Days #20 dose Referrals: [facility] [Outside] - Follow up with primary Janae Cowan MD [Medical Doctor] - Follow up with primary Forms: [employer] (Citizen Of [place])
--- NOTE | 2018-07-17 09:47 | RAD ---
HISTORY: cough, pneumonia COMPARISON: Chest x-ray performed 06/23/18 TECHNIQUE: Chest PA and lateral FINDINGS: LUNGS: Subsegmental atelectasis, left lung base. Please note that chest x-ray has limited sensitivity for the detection of pulmonary masses. PLEURA: No significant pleural effusion identified. No definite pneumothorax . CARDIOVASCULAR: Heart size appears within normal limits. No atherosclerotic calcification present. OSSEOUS STRUCTURES: No acute osseous abnormality identified. VISUALIZED UPPER ABDOMEN: Unremarkable. OTHER FINDINGS: None. IMPRESSION: Mild subsegmental atelectasis, left lung base.
[2018-07-17 09:58] VITALS: BP 129/50; PULSE 92; TEMP 97.9
== END 2018-07-17 09:59 | disposition home or self-care (01) ==
LOC: ED 08:07
DX: J06.9 Acute upper respiratory infection, unspecified (principal); I10 Essential (primary) hypertension; F20.9 Schizophrenia, unspecified

== ENCOUNTER 2018-08-30 00:50 | Emergency (ER) | payer MEDICAID ==
[2018-08-30 00:51] VITALS: BMI 18.4
[2018-08-30 01:05] VITALS: O2SAT 98
--- NOTE | 2018-08-30 01:19 | ED PDOC ---
Arrival/HPI <Toni Jay - Last Filed: 08/30/18 03:23> - General Historian: Patient - History of Present Illness Narrative History of Present Illness (Text): 08/30/18 01:10 23yo female who present with complaint of lower back pain x one week. States she was seeing a chiropractor for the pain 2years ago, but stopped when he stopped taking her insurance. Notes she have always taken OTC analgesic for the pain, but the pain has been persistent for the last one week. States pain is usually with movement. States she is not sure if is secondary to lifting objects. +Urinary frequency. Denies focal weakness, abdominal pain, dysuria, heamturia, fever, fecal/urinary incontinence, saddle anesthesia, any other complaint. <Claudia Burger A - Last Filed: 08/31/18 20:23> - General Chief Complaint: Back Pain Time Seen by Provider: 08/30/18 00:55 Past Medical History - Provider Review Nursing Documentation Reviewed: Yes - Past History Past History: No Previous - Infectious Disease Hx of Infectious Diseases: None - Tetanus Immunization Tetanus Immunization: Unknown - Reproductive Currently : No - Past Medical History Past Medical History: No Previous - Cardiac Hx Cardiac Disorders: Yes Hx Cardiac Arrhythmia: Yes Hx Hypertension: Yes - Pulmonary Hx Respiratory Disorders: Yes Hx Asthma: Yes - Neurological Hx Neurological Disorder: No - HEENT Hx HEENT Disorder: Yes Other/Comment: TONSILECTOMY - Renal Hx Renal Disorder: No - Endocrine/Metabolic Hx Endocrine Disorders: No - Hematological/Oncological Hx Blood Disorders: No - Integumentary Hx Dermatological Disorder: No - Musculoskeletal/Rheumatological Hx Musculoskeletal Disorders: No - Gastrointestinal Hx Gastrointestinal Disorders: No - Genitourinary/Gynecological Hx Genitourinary Disorders: No Hx Sexually Transmitted Diseases: No - Psychiatric Hx Psychophysiologic Disorder: Yes Hx Anxiety: Yes Hx Depression: Yes Hx Schizophrenia: Yes Hx Substance Use: No - Surgical History Hx Tonsillectomy: Yes Other/Comment: Endoscopy , foot surgery - Anesthesia Hx Anesthesia: Yes Hx Anesthesia Reactions: No Hx Malignant Hyperthermia: No - Suicidal Assessment Feels Threatened In Home Enviroment: No <Claudia Burger A - Last Filed: 08/31/18 20:23> Family/Social History - Physician Review Nursing Documentation Reviewed: Yes Family/Social History: Unknown Family HX Smoking Status: Never Smoked Hx Alcohol Use: No Hx Substance Use: No Hx Substance Use Treatment: No <Claudia Burger A - Last Filed: 08/31/18 20:23> Allergies/Home Meds <Toni Jay - Last Filed: 08/30/18 03:23> <Claudia Burger A - Last Filed: 08/31/18 20:23> Allergies/Adverse Reactions: Allergies No Known Allergies Allergy (Verified 08/30/18 01:01) seasonal allergy Review of Systems - Physician Review All systems were reviewed & negative as marked: Yes - Review of Systems Constitutional: Normal Eyes: Normal ENT: Normal Respiratory: Normal Cardiovascular: Normal Gastrointestinal: Normal Genitourinary Female: Normal Musculoskeletal: Back Pain Skin: Normal Neurological: Normal Endocrine: Normal Hemo/Lymphatic: Normal Psychiatric: Normal <Claudia Burger A - Last Filed: 08/31/18 20:23> Physical Exam Vital Signs Temp Pulse Resp BP Pulse Ox 08/30/18 01:02 97.9 F 83 16 109/69 98 <Toni Jay - Last Filed: 08/30/18 03:23> Vital Signs Reviewed: Yes Vital Signs Temp Pulse Resp BP Pulse Ox 08/30/18 01:02 97.9 F 83 16 109/69 98 Temperature: Afebrile Blood Pressure: Normal Pulse: Regular Respiratory Rate: Normal Appearance: Positive for: Well-Appearing, Non-Toxic, Comfortable Pain Distress: None Mental Status: Positive for: Alert and Oriented X 3 - Systems Exam Head: Present: Atraumatic, Normocephalic Pupils: Present: PERRL Extroacular Muscles: Present: EOMI Conjunctiva: Present: Normal Mouth: Present: Moist Mucous Membranes Neck: Present: Normal Range of Motion Respiratory/Chest: Present: Clear to Auscultation, Good Air Exchange. No: Respiratory Distress, Accessory Muscle Use Cardiovascular: Present: Regular Rate and Rhythm, Normal S1, S2. No: Murmurs Abdomen: No: Tenderness, Distention, Peritoneal Signs Back: Present: Normal Inspection. No: Midline Tenderness, Paraspinal Tenderness, Pain with Leg Raise Upper Extremity: Present: Normal Inspection. No: Cyanosis, Edema Lower Extremity: Present: Normal Inspection. No: Edema Neurological: Present: GCS=15, CN II-XII Intact, Speech Normal Skin: Present: Warm, Dry, Normal Color. No: Rashes Psychiatric: Present: Alert, Oriented x 3, Normal Insight, Normal Concentration <Diru,Happiness A - Last Filed: 08/31/18 20:23> Medical Decision Making ED Course and Treatment: 08/30/18 03:23 Results of U/A- Negative - Lab Interpretations Lab Results: Urine Color Yellow (YELLOW) 08/30/18 02:30 Urine Appearance Sl cloudy (CLEAR) 08/30/18 02:30 Urine pH 7.0 (4.7-8.0) 08/30/18 02:30 Ur Specific [place] 1.020 (1.005-1.035) 08/30/18 02:30 Urine Protein Negative mg/dL (<30 mg/dL) 08/30/18 02:30 Urine Glucose (UA) Negative mg/dL (NEGATIVE) 08/30/18 02:30 Urine Ketones Negative mg/dL (NEGATIVE) 08/30/18 02:30 Urine Blood Trace-intact (NEGATIVE) H 08/30/18 02:30 Urine Nitrate Negative (NEGATIVE) 08/30/18 02:30 Urine Bilirubin Negative (NEGATIVE) 08/30/18 02:30 Urine Urobilinogen 0.2 E.U./dL (<1 E.U./dL) 08/30/18 02:30 Ur Leukocyte Esterase Small Ruiz/uL (NEGATIVE) H 08/30/18 02:30 Urine RBC 0 - 2 /hpf (0-2) 08/30/18 02:30 Urine WBC 1 - 3 /hpf (0-6) 08/30/18 02:30 Ur Epithelial Cells Many /hpf (0-5) H 08/30/18 02:30 Amorphous Sediment Few /hpf (NONE) 08/30/18 02:30 Urine Bacteria Few /hpf (NONE) 08/30/18 02:30 - RAD Interpretation Radiology Orders: 08/30/18 01:06 LS SPINE WITH OBL > 18 YRS OLD [RAD] Stat - Medication Orders Current Medication Orders: Discontinued Medications Cyclobenzaprine HCl (Flexeril) 5 mg PO STAT STA Stop: 08/30/18 01:09 Last Admin: 08/30/18 02:59 Dose: 5 mg Ketorolac Tromethamine (Toradol) 30 mg IM STAT STA Stop: 08/30/18 01:09 Last Admin: 08/30/18 02:59 Dose: 30 mg MAR Pain Assessment Document 08/30/18 02:59 SS (Rec: 08/30/18 03:00 SS [facility] [id number] Pain Reassessment Is this a pain reassessment? No Sleep Is patient sleeping during reassessment? No Presence of Pain Presence of Pain Yes IM Administration Charges Document 08/30/18 02:59 SS (Rec: 08/30/18 03:00 SS [facility] [id number] Injection Site MAR Injection Site Left Gluteus Cuco Charges for Administration # of IM Administrations 1 <Toni Jay - Last Filed: 08/30/18 03:23> ED Course and Treatment: 08/30/18 02:09 PT in ED for stated history. She was ambulatory and neurologically intact LS xray No acute finding UA Pending Result was DW the pt Case endorsed to Dr. Jay to f/u UA and dispo pt - RAD Interpretation Radiology Orders: 08/30/18 01:06 LS SPINE WITH OBL > 18 YRS OLD [RAD] Stat <Claudia Burger A - Last Filed: 08/31/18 20:23> - PA / KENO DEALER / Resident Statement / has reviewed & agrees with the documentation as recorded. <Toni Jay - Last Filed: 08/30/18 03:23> Disposition/Present on Arrival <Toni Jay - Last Filed: 08/30/18 03:23> - Present on Arrival Any Indicators Present on Arrival: No History of DVT/PE: No History of Uncontrolled Diabetes: No Urinary Catheter: No History of Decub. Ulcer: No History Surgical Site Infection Following: None - Disposition Have Diagnosis and Disposition been Completed?: Yes Disposition Time: 02:30 Patient Plan: Discharge <Claudia Burger A - Last Filed: 08/31/18 20:23> - Disposition Diagnosis: Back pain Disposition: HOME/ ROUTINE Condition: STABLE Discharge Instructions (ExitCare): Low Back Pain (DC) Additional Instructions: Follow up with your Doctor Return to ED for any new or worsening symptoms Prescriptions: Cyclobenzaprine [Cyclobenzaprine HCl] 10 mg PO BID #10 tab RX: Ibuprofen [Motrin Tab] 600 mg PO Q6 #15 tab Referrals: Kamla Celaya MD [Primary Care Provider] - Follow up with primary Forms: [employer] ([place])
[2018-08-30 03:02] LABS: URINE BILIRUBIN NEGATIVE (NEGATIVE); URINE BLOOD TRACE-INTACT (NEGATIVE); URINE GLUCOSE (UA) NEGATIVE (NEGATIVE); URINE LEUKOCYTE ESTERASE SMALL Leu/uL (NEGATIVE); URINE PROTEIN NEGATIVE mg/dL (<30 mg/dL); URINE UROBILINOGEN 0.2 E.U./dL (<1 E.U./dL)
[2018-08-30 03:12] LABS: URINE APPEARANCE SL CLOUDY (CLEAR); URINE COLOR YELLOW (YELLOW)
[2018-08-30 03:14] LABS: URINE AMORPHOUS SEDIMENT FEW /hpf; URINE BACTERIA FEW /hpf; URINE EPITHELIAL CELLS MANY /hpf (0-5); URINE RBC 0 - 2 /hpf (0-2)
[2018-08-30 03:52] VITALS: BP 112/68; PULSE 80; RESP 18; TEMP 97.8
--- NOTE | 2018-08-30 14:37 | RAD ---
Date of service: 08/30/2018 PROCEDURE: Radiographs of the Lumbar Spine. HISTORY: back pain COMPARISON: No prior. FINDINGS: BONES: Levoscoliosis, moderate. DISC SPACES: Unremarkable. OTHER FINDINGS: None. IMPRESSION: Mild levoscoliosis. No acute/significant findings otherwise identified.
== END 2018-08-30 03:52 | disposition home or self-care (01) ==
LOC: ED 00:50
DX: M54.5 Low back pain (principal); I10 Essential (primary) hypertension; F20.9 Schizophrenia, unspecified
CPT/HCPCS: 72110; 81001; 81025; 96372; 99283; J1885

== ENCOUNTER 2018-10-06 07:08 | Emergency (ER) | payer MEDICAID ==
[2018-10-06 07:09] VITALS: BMI 18.4
--- NOTE | 2018-10-06 07:38 | ED PDOC ---
Arrival/HPI - General Chief Complaint: Abdominal Pain Time Seen by Provider: 10/06/18 07:19 Historian: Patient - History of Present Illness Narrative History of Present Illness (Text): 10/06/18 07:19 23 year old female, with a past medical history of pulmonary embolism, hypertension, chest pain, tachycardia, depression, and anxiety, who presents to the emergency department for right lower abdominal pain. She reports she [place] [facility] [place] initially prompted by resolved chest pain. Patient rates right lower abdominal pain as 5/10.Patient does not take any medications. Patient denies any vaginal bleeding, vaginal discharge, dysuria, urine discoloration, urine odor, fevers, chills, headache, dizziness, chest pain, shortness of breath, cough, abdominal pain, nausea, vomiting, diarrhea, or any other complaint. PMD: Dr. Huff Time/Duration: < week (3 days) Symptom Onset: Gradual Symptom Course: Unchanged Severity Level: 5 Activities at Onset: Light Context: Home Past Medical History - Provider Review Nursing Documentation Reviewed: Yes SHARITA Report Viewed: Yes - Past History Past History: No Previous - Infectious Disease Hx of Infectious Diseases: None - Tetanus Immunization Tetanus Immunization: Unknown - Past Medical History Past Medical History: No Previous - Cardiac Hx Cardiac Disorders: Yes Hx Cardiac Arrhythmia: Yes Hx Hypertension: Yes - Pulmonary Hx Respiratory Disorders: Yes Hx Asthma: Yes - Neurological Hx Neurological Disorder: No - HEENT Hx HEENT Disorder: Yes Other/Comment: TONSILECTOMY - Renal Hx Renal Disorder: No - Endocrine/Metabolic Hx Endocrine Disorders: No - Hematological/Oncological Hx Blood Disorders: No - Integumentary Hx Dermatological Disorder: No - Musculoskeletal/Rheumatological Hx Musculoskeletal Disorders: No - Gastrointestinal Hx Gastrointestinal Disorders: No - Genitourinary/Gynecological Hx Genitourinary Disorders: No Hx Sexually Transmitted Diseases: No - Psychiatric Hx Psychophysiologic Disorder: Yes Hx Anxiety: Yes Hx Depression: Yes Hx Schizophrenia: Yes Hx Substance Use: No - Surgical History Hx Tonsillectomy: Yes Other/Comment: Endoscopy , foot surgery - Anesthesia Hx Anesthesia: Yes Hx Anesthesia Reactions: No Hx Malignant Hyperthermia: No - Suicidal Assessment Feels Threatened In Home Enviroment: No Family/Social History - Physician Review Nursing Documentation Reviewed: Yes Family/Social History: Unknown Family HX Smoking Status: Never Smoked Hx Alcohol Use: No Hx Substance Use: No Hx Substance Use Treatment: No Allergies/Home Meds Allergies/Adverse Reactions: Allergies No Known Allergies Allergy (Verified 08/30/18 01:01) seasonal allergy Home Medications: Home Meds Medication Instructions Recorded Confirmed No Known Home Med 10/06/18 10/06/18 Review of Systems - Physician Review All systems were reviewed & negative as marked: Yes - Review of Systems Constitutional: absent: Fevers, Night Sweats Respiratory: absent: SOB, Cough Cardiovascular: absent: Chest Pain, PEREZ Gastrointestinal: Abdominal Pain (right lower abdominal pain). absent: Diarrhea, Nausea, Vomiting Genitourinary Female: absent: Dysuria, Vaginal Bleeding, Vaginal Discharge, Other (foul smelling urine) Neurological: absent: Headache, Dizziness Physical Exam Vital Signs Reviewed: Yes Temperature: Afebrile Blood Pressure: Normal Pulse: Regular Respiratory Rate: Normal Appearance: Positive for: Well-Appearing, Non-Toxic, Comfortable Mental Status: Positive for: Alert and Oriented X 3 - Systems Exam Head: Present: Atraumatic, Normocephalic Pupils: Present: PERRL Extroacular Muscles: Present: EOMI Conjunctiva: Present: Normal Mouth: Present: Moist Mucous Membranes Neck: Present: Normal Range of Motion Respiratory/Chest: Present: Clear to Auscultation, Good Air Exchange. No: Respiratory Distress, Accessory Muscle Use Cardiovascular: Present: Regular Rate and Rhythm, Normal S1, S2. No: Murmurs Abdomen: Present: Tenderness (right lower quadrant pain, slight suprapubic pain). No: Distention, Peritoneal Signs Back: Present: Normal Inspection Upper Extremity: Present: Normal Inspection. No: Cyanosis, Edema Lower Extremity: Present: Normal Inspection. No: Edema Neurological: Present: GCS=15, Speech Normal Skin: Present: Warm, Dry, Normal Color. No: Rashes Psychiatric: Present: Alert, Oriented x 3, Normal Insight, Normal Concentration Medical Decision Making ED Course and Treatment: 10/06/18 07:19 Impression: 23 year old female who presents to the emergency department with complaints of right lower abdominal pain and requests evaluation since positive urine test 3 days ago. Differential Diagnosis included but are not limited to: --Ectopic --Threatened Plan: -- Labs -- Tylenol 325 mg -- Urine Test -- Urinalysis -- Transvaginal US -- Pelvis US -- Reassess and disposition Prior Visits: Notes and results from previous visits were reviewed. Progress Notes: 10/06/18 09:23 Labs reviewed with no evidence of leukocytosis or anemia. UA negative for bacteria. Review of US shows IUP with yolk & gestational sac at 8 weeks & 2 days. Patient informed and states she is hungry. 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 She is advised to follow up with her [facility] for initiation of care and demonstrates understanding. She is stable for discharge. - Lab Interpretations Lab Results: 10/06/18 08:02 10/06/18 08:02 Lab Results 10/06/18 08:02: Beta HCG, Quant 73150.00 H 10/06/18 08:02: Sodium 136, Potassium 4.2, Chloride 105, Carbon Dioxide 26, Anion Gap 9 L, BUN 7, Creatinine 0.4 L, Est GFR ( Amer) > 60, Est GFR (Non-Af Amer) > 60, Random Glucose 83, Calcium 9.2, Total Bilirubin 0.5, AST 18, ALT 13, Alkaline Phosphatase 39, Total Protein 7.3, Albumin 4.1, Globulin 3.2, Albumin/Globulin Ratio 1.3 10/06/18 08:02: Urine Color Yellow, Urine Appearance Clear, Urine pH 8.0, Ur Specific [place] 1.020, Urine Protein Negative, Urine Glucose (UA) Negative, Urine Ketones Negative, Urine Blood Negative, Urine Nitrate Negative, Urine Bilirubin Negative, Urine Urobilinogen 0.2, Ur Leukocyte Esterase Negative 10/06/18 08:02: WBC 5.8, RBC 4.39, Hgb 11.7 L, Hct 36.9, MCV 84.1, MCH 26.7, MCHC 31.7, RDW 15.0 H, Plt Count 335, MPV 9.2, Neut % (Auto) 54.4, Lymph % (Auto) 34.8, Moca % (Auto) 7.1 H, Eos % (Auto) 2.8, Baso % (Auto) 0.9, Lymph # (Auto) 2.0, Moca # (Auto) 0.4, Eos # (Auto) 0.2, Baso # (Auto) 0.05, Absolute Neuts (auto) 3.13 I have reviewed the lab results: Yes - Medication Orders Current Medication Orders: 10/10/18 07:37 Discontinued Medications Acetaminophen (Tylenol 325mg Tab) 650 mg PO STAT STA Stop: 10/06/18 07:38 Last Admin: 10/06/18 08:56 Dose: 650 mg MAR Pain/Vitals Document 10/06/18 08:56 B[employer]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 No - Scribe Statement The provider has reviewed the documentation as recorded by the Scribe Jacob Tate All medical record entries made by the Scribe were at my direction and personally dictated by me. I have reviewed the chart and agree that the record accurately reflects my personal performance of the history, physical exam, medical decision making, and the department course for this patient. I have also personally directed, reviewed, and agree with the discharge instructions and disposition. Disposition/Present on Arrival - Present on Arrival Any Indicators Present on Arrival: No History of DVT/PE: No History of Uncontrolled Diabetes: No Urinary Catheter: No History of Decub. Ulcer: No History Surgical Site Infection Following: None - Disposition Have Diagnosis and Disposition been Completed?: Yes Diagnosis: Disposition: HOME/ ROUTINE Disposition Time: 09:27 Patient Plan: Discharge Condition: STABLE Discharge Instructions (ExitCare): Avoiding Infections in , - The Second Month Print Language: UPPER SORBIAN Additional Instructions: All medical record entries made by the Scribe were at my direction and personally dictated by me. I have reviewed the chart and agree that the record accurately reflects my personal performance of the history, physical exam, medical decision making, and the department course for this patient. I have also personally directed, reviewed, and agree with the discharge instructions and disposition. Please follow up with your [facility] on Wednesday for your scheduled appointment. Referrals: Aaron Lizama MD [Staff Provider] - Follow up with primary Forms: Lono (Thai)
[2018-10-06 08:12] LABS: BASO # 0.05 K/mm3 (0.0-2.0); BASO % 0.9 % (0.0-3.0); EOS # 0.2 (0.0-0.7); EOS % 2.8 % (1.5-5.0); HEMOGLOBIN 11.7 g/dL (12.0-16.0); LYMPH % 34.8 % (22.0-35.0); MEAN CELL VOLUME 84.1 fl (80.0-105.0); MEAN CORPUSCULAR HEMOGLOBIN 26.7 pg (25.0-35.0); MEAN CORPUSCULAR HGB CONC 31.7 g/dl (31.0-37.0); MEAN PLATELET VOLUME 9.2 fl (7.0-11.0); MONO # 0.4 (0.1-0.6); MONO % 7.1 % (1.0-6.0); RBC 4.39 10^6/uL (3.5-6.1); WHITE BLOOD COUNT 5.8 10^3/uL (4.5-11.0)
[2018-10-06 08:16] LABS: URINE BILIRUBIN NEGATIVE (NEGATIVE); URINE BLOOD NEGATIVE (NEGATIVE); URINE GLUCOSE (UA) NEGATIVE (NEGATIVE); URINE LEUKOCYTE ESTERASE NEGATIVE Leu/uL (NEGATIVE); URINE PROTEIN NEGATIVE mg/dL (<30 mg/dL); URINE UROBILINOGEN 0.2 E.U./dL (<1 E.U./dL)
[2018-10-06 08:21] LABS: ALB/GLOB RATIO 1.3 (1.1-1.8); ALBUMIN 4.1 g/dL (3.0-4.8); ALT/SGPT 13 U/L (7-56); AST/SGOT 18 U/L (14-36); BLOOD UREA NITROGEN 7 mg/dL (7-21); CALCIUM 9.2 mg/dL (8.4-10.5); GFR NON-AFRICAN AMERICAN > 60
[2018-10-06 08:36] LABS: URINE APPEARANCE CLEAR (CLEAR); URINE COLOR YELLOW (YELLOW)
[2018-10-06 09:53] VITALS: BP 103/65; PULSE 88; RESP 18; TEMP 98; O2SAT 99
--- NOTE | 2018-10-06 16:09 | US ---
Date of service: 10/06/2018 HISTORY: RLQ pain w/ positive test; last menstrual period is unknown. COMPARISON: None available. TECHNIQUE: Transvaginal pelvic ultrasound was performed with longitudinal and transverse images submitted for interpretation. FINDINGS: UTERUS: Measures 8.7 x 6.0 x 6.6 cm. Normal in size and appearance but retroflexed. No fibroid or other mass lesion seen. ENDOMETRIUM: A gestational sacs identified with mean sac diameter of 3.2 cm corresponding to 8 weeks 2 day gestation. Yolk sac pole and amniotic membrane are identified. Yolk sac measures 0.22 cm and mean pole CRL measures 1.8 cm corresponding to 8 weeks 2 days gestational age as well. cardiac activity is recorded at 177 beats per minute. No suspicious decidual changes to suggest acute or subacute hemorrhage. CERVIX: Cervix measures 4.1 cm length with closed internal os and no mass or cyst clearly related. RIGHT OVARY: Measures 3.1 x 2.2 x 2.6 cm. No solid mass. Normal flow. LEFT OVARY: Not identified. No suspicious adnexal mass or fluid collection appreciable. FREE FLUID: No significant free fluid noted. OTHER FINDINGS: None. IMPRESSION: A single viable intrauterine gestation is identified with average ultrasonic age of 8 weeks 2 days with no overt pattern of decidual hemorrhage. Retroflexed uterus with unremarkable right adnexal compartment. The left ovary is not identified but no suspicious left adnexal findings are appreciable at this time.
== END 2018-10-06 09:52 | disposition home or self-care (01) ==
LOC: ED 07:08
DX: O26.891 Other specified pregnancy related conditions, first trimester (principal); Z3A.08 8 weeks gestation of pregnancy; R10.31 Right lower quadrant pain; I10 Essential (primary) hypertension